=== PATIENT | male | born 1990 | race Caucasian/White ===

== ENCOUNTER 2021-05-01 16:58 | Inpatient (IN) | payer MEDICAID, SELFPAY ==
[~2021-05-01] VITALS: Ht 172.7 cm; Wt 92.1 kg
[~2021-05-01 16:58] MED LIST: ATI.5 PO; [UNRECOGNIZED DRUG - CODE] PO
--- NOTE | 2021-05-01 17:00 | NUR ---
PT W/C ASSITED TO BED #4
[2021-05-01 17:06] VITALS: BP 153/92
--- NOTE | 2021-05-01 17:06 | NUR ---
31 Y/O MALE BIB FATHER FOR ALOC 3DAYS. PER FATHER MAY BE GOING THROUGH ALCOHOL WITHDRAWALS. BILAT PUPILS DILATED 7MM. CONTRACTED. PT IS CONFUSED. GCS 10. WITHDRAWS TO PAIN. FATHER AT BEDSIDE MEDHX: SEIZURE
[2021-05-01] MEDS ORDERED: LORazepam 2 MG/ML VIAL IVP ONE ×2 (17:10→19:25)
[2021-05-01 17:25] LABS: BASOPHILS % (AUTO) 1.2 % (0.0-2.0); EOSINOPHILS # (AUTO) 0.1 K/uL (0-0.4); EOSINOPHILS % (AUTO) 2.2 % (0.0-4.0); HEMATOCRIT 43.7 % (36-52); HEMOGLOBIN 14.7 g/dL (12.0-18.0); LYMPHOCYTES # (AUTO) 1.5 K/uL (2.0-11.5); LYMPHOCYTES % (AUTO) 37.3 % (20.5-51.1); MEAN CORPUSCULAR HEMOGLOBIN 30 pg (27-31); MEAN CORPUSCULAR HGB CONC 34 g/dL (33-37); MEAN CORPUSCULAR VOLUME 88.9 fL (80-94); MONOCYTES # (AUTO) 0.5 K/uL (0.8-1.0); MONOCYTES % (AUTO) 12.5 % (1.7-9.3); NEUTROPHILS # (AUTO) 1.9 K/uL (1.8-7.7); NEUTROPHILS % (AUTO) 46.8 % (42.2-75.2); PLATELET COUNT (AUTO) 212 K/uL (140-450); RED BLOOD CELL COUNT(AUTO) 4.92 MIL/uL (4.20-6.10); RED CELL DISTRIBUTION WIDTH 14.6 % (11.6-13.7)
--- NOTE | 2021-05-01 17:33 | NUR ---
URINE SAMPLE COLLECTED HANDED TO ZOHAIB CAO
[2021-05-01 17:40] LABS: APPEARANCE,URINE CLEAR (CLEAR); BILIRUBIN,URINE NEGATIVE (NEGATIVE); BLOOD, URINE NEGATIVE (NEGATIVE); COLOR,URINE YELLOW (YELLOW); LEUKOCYTE ESTERASE ,URINE NEGATIVE (NEGATIVE); NITRITE, URINE NEGATIVE (NEGATIVE); UGLUCOSE NEGATIVE (NEGATIVE)
[2021-05-01 17:43] LABS: CARBON DIOXIDE 22.9 mmol/L (21-32); CREATININE 0.9 mg/dL (0.6-1.3); POTASSIUM 3.9 mmol/L (3.5-5.1)
[2021-05-01 17:51] LABS: ALBUMIN 3.6 g/dL (3.4-5.0); TOTAL BILIRUBIN 0.6 mg/dL (0.0-1.0)
[2021-05-01 17:51] LABS: BARBITURATE, URINE NEGATIVE ng/ml (NEG <=200); BENZODIAZEPINE, URINE NEGATIVE ng/mL (NEG <=200); CANNABINOID, URINE NEGATIVE ng/mL (NEG <=50); COCAINE, URINE NEGATIVE ng/mL (NEG <=300); OPIATE, URINE NEGATIVE ng/mL (NEG <=2000); PHENCYCLIDINE SCREEN,URINE NEGATIVE ng/mL (NEG <=25)
--- NOTE | 2021-05-01 18:15 | NUR ---
Dr. Fountain is reevaluating the patient at bedside.
[2021-05-01] MEDS ORDERED: NACL 0.9% 1,000 ML IV ONE (18:20)
[2021-05-01] MEDS ORDERED: KETOROLAC 15 MG/ML VIAL IVP ONE (18:25)
--- NOTE | 2021-05-01 18:48 | NUR ---
Pt taken to CT Scan Via ivory
--- NOTE | 2021-05-01 19:11 | NUR ---
REPORT RECEIVED FROM CURTIS CRUMP FOR CONTINUITY OF CARE
--- NOTE | 2021-05-01 19:11 | NUR ---
Edyta lópez in [facility] - 05/01/21 at 1911 by [email or web address] REPORT RECEIVED FROM CURTIS CRUMP FOR CONTINUITY OF CARE
--- NOTE | 2021-05-01 19:11 | NUR ---
Pt report given to THOM RN. Transfer of care at this time.
--- NOTE | 2021-05-01 19:33 | NUR ---
Edyta lópez in ED - 05/01/21 at 1934 by MEDHAKEEM Wasted ATivan 1mg/ml per MD order of partial dose. Patient received 1mg/ml.
--- NOTE | 2021-05-01 19:34 | NUR ---
Wasted ATivan 1mg/ml per MD order of partial dose with financial management Kym. Patient received 1mg/ml.
--- NOTE | 2021-05-01 19:43 | NUR ---
collected blood and urine, gave to navid Boone
[2021-05-01] MEDS ORDERED: CLINDAMYCIN 600 MG in DEXTROSE 5% 50 ML IV ONE (19:55)
[2021-05-01] MEDS ORDERED: CLINDAMYCIN 600 MG/4 ML VIAL ONE (20:12)
--- NOTE | 2021-05-01 20:27 | NUR ---
Called father Luis for updates on son. for future updates can call #[phone]
[2021-05-01] MEDS ORDERED: LORazepam 2 MG/ML VIAL IVP PRN (21:05)
[2021-05-01] MEDS: MULTIVITAMIN-12 10 ML, THIAMINE 100 MG, FOLIC ACID 1 MG, MAGNESIUM SULFATE 50% 2,000 MG... IV SCH ×5 (21:05)
--- NOTE | 2021-05-01 21:19 | NUR ---
Called for medication reconcilation-- cannot recall patient medications
[2021-05-01] MEDS ORDERED: ATI.5 PO (21:25)
[2021-05-01] MEDS ORDERED: HYDR-5080 PO (21:26)
--- NOTE | 2021-05-01 21:40 | NUR ---
Patient will be admitted to care of KAPIL PATEL. Admited to TELEMETRY. Will go to room 119A. Belongings list completed. Report to MJ. Patient stable.
--- NOTE | 2021-05-01 22:00 | NUR ---
ADMITTED THE PATIENT FROM ER VIA GURNEY. PATIENT A/A/OX3, ABLE TO RESPOND TO QUESTIONS. PATIENT NOT ON ANY DISTRESS. NO COMPLAIN AT THIS TIME. VSS, AFEBRILE, SATING 98% ON 2L/NC. ST ON PURCHASE ANALYST, HR-116. ORIENTED THE PATIENT TO THE ROOM SETTING AND USE OF CALL LIGHT SYSTEM. FALL PRECAUTION IMPLEMENTED. INSTRUCTED THE PT NOT TO GET OOB WITHOUT ASSISTANCE. PT VERBALIZED UNDERSTANDING WITH THE POC. CALL LIGHT WITHIN REACH. WILL CONTINUE POC AND MONITORING.
[2021-05-01 23:00] VITALS: BP 135/67
[2021-05-02] VITALS: BP 137/81
--- NOTE | 2021-05-02 00:50 | NUR ---
PATIENT COMPLAINING OF PAIN ON HIS ABDOMEN AND RECTAL AREA, PT STATED THAT " I HAVE A FISTULA ON MY RECTUM". NO PRN MEDS ON BOARD. PAGED DR DICK AND AWAITING FOR MD TO RESPOND.
[2021-05-02] MEDS ORDERED: MORPHINE SULFATE 2 MG/ML SYR IVP PRN ×2 (01:15→09:10)
--- NOTE | 2021-05-02 02:20 | NUR ---
PATIENT ASLEEP AT THIS TIME. VISIBLE CHEST RISE AND FALL NOTED. PT NOT IN ANY DISTRESS AND NO COMPLAIN AT THIS TIME. CALL LIGHT WITHIN REACH.
[2021-05-02] MEDS: KETOROLAC 15 MG/ML VIAL IVP PRN ×2 (02:28→09:13)
[2021-05-02 04:00] VITALS: BP 148/85
[2021-05-02] MEDS: chlordiazePOXIDE 25 MG CAP PO SCH ×3 (04:21→20:42)
--- NOTE | 2021-05-02 04:22 | NUR ---
Pt still complaining of pain on his abdomen. Prn Morphine given as ordered. Will continue to observe.
--- NOTE | 2021-05-02 06:38 | NUR ---
PATIENT STABLE. NO ACUTE EVENTS THROUGHOUT THE NIGHT. PT NOT IN ANY DISTRESS. NO COMPLAIN AT THIS TIME. ALL NEEDS ATTENDED.CALL LIGHT WITHIN REACH. WILL ENDORSE THE PT TO THE ONCOMING RN FOR CONTINUITY OF CARE.
--- NOTE | 2021-05-02 07:37 | NUR ---
ENDORSED PATIENT TO DAY RN FOR CONTINUITY OF CARE. SIGNING OFF.
[2021-05-02 08:00] VITALS: BP 160/98
[2021-05-02] MEDS ORDERED: ONDANSETRON 4 MG/2 ML VIAL IM/IVP PRN (09:10)
[2021-05-02] MEDS ORDERED: ACETAMINOPHEN 325 MG TAB PO PRN (09:10)
[2021-05-02] MEDS ORDERED: POTASSIUM CHLORIDE 10 MEQ TABER PO PRN (09:10)
[2021-05-02] MEDS ORDERED: DOCUSATE SODIUM 100 MG GELCAP PO PRN (09:10)
[2021-05-02] MEDS ORDERED: MAG SULF 2000 MG/WATER PREMIX 50 ML IV PRN (09:10)
[2021-05-02] MEDS ORDERED: ZOLPIDEM 5 MG TAB PO PRN (09:10)
[2021-05-02] MEDS ORDERED: HYDROcodone/APAP 5/325 MG 1 TAB TAB PO PRN (09:10)
--- NOTE | 2021-05-02 09:13 | NUR ---
ADMINISTERED PRESCRIBED MEDS FOR PRN 8/10 PAIN ORDERED BY MD. PATIENT TOLERATED WELL. MEDICATION EDUCATION PROVIDED. PATIENT VERBALIZED UNDERSTANDING. SAFETY MEASURES IN PLACE. WILL CONTINUE TO MONITOR.
[2021-05-02] MEDS: NACL 0.9% 1,000 ML IV SCH ×2 (09:23→17:59)
--- NOTE | 2021-05-02 10:41 | NUR ---
DC PLANNIN YRS OLD MALE PATIENT WAS ADMITTED FROM HOME WITH A DX OF ALCOHOL WITHDRAWAL.PATIENT HAS A HX OF CHIRON'S DISEASE AND ALCOHOLISM , HIATAL HERNIA, ANAL FISTULA AND HEART MURMUR. CT ABD/PELVIS SHOWED POSSIBLE MILD DISTAL ESOPHAGITIS AND HEPATIC STEATOSIS. RAPID COVID TEST NORMAL . RAPID COVID TEST NEGATIVE. ADMINISTERED IVF, BANANA BAG. CONSULTED WITH GI ,SURGEON AND INSTALLER METAL FLOORING FOR ALCOHOLISM. DC PLAN TO GO HOME WHEN STABLE. CM TO FOLLOW. Addendum: 05/05/21 at 1051 by Kallie Fry RN DC PLANNING: PATIENT WAS SEEN BY PSYCHIATRIST DR SARGENT COUNSELED ON ALCOHOL ABUSE AND RECOMMENDED OUTPATIENT REHAB AND MENTAL HEALTH RESOURSES PROVIDED. SURGEON DR BAGLEY RECOMMENDING OUT PATIENT FOLLOW UP WITH GI CLINICALLY STABLE. PATIENT IS STABLE FOR DISCHARGE. CM TO FOLLOW
[2021-05-02] MEDS: MORPHINE SULFATE 2 MG/ML SYR IVP PRN ×2 (11:32→18:01)
--- NOTE | 2021-05-02 11:36 | NUR ---
ADMINISTERED PRESCRIBED MEDS PER MD ORDER FOR PRN 8/10 PAIN. MEDICATION EDUCATION PROVIDED. PATIENT VERBALIZED UNDERSTANDING. SAFETY MEASURES IN PLACE. WILL CONTINUE TO MONITOR.
[2021-05-02 12:00] VITALS: BP 152/89
--- NOTE | 2021-05-02 13:31 | NUR ---
ADMINISTERED PRESCRIBED MEDS PER MD ORDER. PATIENT TOLERATED WELL. MEDICATION EDUCATION PROVIDED. PATIENT VERBALIZED UNDERSTANDING. PATIENT REQUESTED ASSISTANCE TO BATHROOM. STUDENT NURSE PROVIDED STAND-BY ASSISTANCE TO BATHROOM. PATIENT GAIT STEADY. SAFETY MEASURES IN PLACE. WILL CONTINUE TO MONITOR.
[2021-05-02 13:38] LABS: PROTHROMBIN TIME 10.1 secs (10.8-13.4)
[2021-05-02 14:04] LABS: CHOL/HDL RATIO 1.8 (1-4.5); MAGNESIUM 1.8 mg/dL (1.8-2.4); PHOSPHORUS 2.8 mg/dL (2.5-4.9); THYROID STIMULATING HORMONE 3.49 uIU/mL (0.34-3.74)
[2021-05-02 14:15] LABS: ANION GAP 13.9 (8-16); CARBON DIOXIDE 25.6 mmol/L (21-32); CREATININE 0.8 mg/dL (0.6-1.3); POTASSIUM 3.5 mmol/L (3.5-5.1)
[2021-05-02 16:00] VITALS: BP 152/89
[2021-05-02 16:46] LABS: BASOPHILS # (AUTO) 0.1 K/uL (0.00-0.22); BASOPHILS % (AUTO) 1.4 % (0.0-2.0); EOSINOPHILS % (AUTO) 0.9 % (0.0-4.0); HEMATOCRIT 41.5 % (36-52); HEMOGLOBIN 13.6 g/dL (12.0-18.0); LYMPHOCYTES # (AUTO) 0.5 K/uL (2.0-11.5); LYMPHOCYTES % (AUTO) 11.8 % (20.5-51.1); MEAN CORPUSCULAR HEMOGLOBIN 30 pg (27-31); MEAN CORPUSCULAR HGB CONC 33 g/dL (33-37); MEAN CORPUSCULAR VOLUME 90.2 fL (80-94); MONOCYTES # (AUTO) 0.4 K/uL (0.8-1.0); MONOCYTES % (AUTO) 9.1 % (1.7-9.3); NEUTROPHILS # (AUTO) 3.4 K/uL (1.8-7.7); NEUTROPHILS % (AUTO) 76.8 % (42.2-75.2); PLATELET COUNT (AUTO) 169 K/uL (140-450); RED CELL DISTRIBUTION WIDTH 15.3 % (11.6-13.7); WHITE BLOOD COUNT (AUTO) 4.4 K/uL (4.8-10.8)
--- NOTE | 2021-05-02 19:23 | NUR ---
BEDSIDE ENDORSEMENT PROVIDED TO NIGHTSHIFT NURSE FOR CONTINUITY OF CARE.
[2021-05-02 20:00] VITALS: BP 135/87
--- NOTE | 2021-05-02 20:00 | NUR ---
RECEIVED BEDSIDE REPORT EARLIER REGARDING THE PATIENT FOR CONTINUITY OF CARE. RECEIVED PATIENT ASLEEP BUT EASY TO AROUSED. PT A/A/OX3. PT IS NOT IN ANY DISTRESS. NO COMPLAIN AT THIS TIME. DENIES ANY CHEST PAIN, SOB, DIZZINESS OR ANY ABDOMINAL DISCOMFORT. IVF INFUSING ORDERED. VSS, AFEBRILE,SATING 99% ON RA. SR ON CURBING STONECUTTER, HR-63. FALL PRECAUTION IMPLEMENTED. INSTRUCTED THE PT TO CALL FOR ASSISTANCE AT ALL TIME WHEN GETTING OUT OF BED.DISCUSSED POC WITH THE PT AND VERBALIZED UNDERSTANDING. CALL LIGHT WITHIN REACH. WILL CONTINUE POC AND MONITORING.
[2021-05-02] MEDS: MULTIVITAMIN-12 10 ML, THIAMINE 100 MG, FOLIC ACID 1 MG, MAGNESIUM SULFATE 50% 2,000 MG... IV SCH ×5 (20:52)
--- NOTE | 2021-05-02 22:00 | NUR ---
ADMINISTERED THE SCHEDULED MEDICATIONS ORDERED. PATIENT TOLERATED IT WELL. NO ADVERSE DRUG REACTION NOTED. NO COMPLAIN FROM THE PATIENT.
[2021-05-03] VITALS: BP 145/97
[2021-05-03] MEDS ORDERED: MULTIVITAMIN-12 10 ML, THIAMINE 100 MG, FOLIC ACID 1 MG, MAGNESIUM SULFATE 50% 2,000 MG... IV ONE ×5 (00:30)
[2021-05-03] MEDS: NACL 0.9% 1,000 ML IV SCH ×3 (01:50→17:20)
--- NOTE | 2021-05-03 02:18 | NUR ---
VITAL SIGNS STABLE, AFEBRILE, SATING 98% ON RA. NO COMPLAIN OF PAIN AT THIS TIME. PT NOT IN ANY DISTRESS. SBA WITH ON MERCHANDISE EXECUTIVE, HR-59. Addendum: 05/03/21 at 0539 by Shefali Yanes RN RN MIDNIGHT VITAL SIGNS
--- NOTE | 2021-05-03 02:30 | NUR ---
PT ASLEEP AT THIS TIME. VISIBLE CHEST RISE AND FALL NOTED. NOT IN ANY DISTRESS. SAFETY MEASURES IN PLACE.
[2021-05-03 04:00] VITALS: BP 152/97
[2021-05-03] MEDS: chlordiazePOXIDE 25 MG CAP PO SCH ×3 (04:16→20:54)
--- NOTE | 2021-05-03 05:38 | NUR ---
VITAL SIGNS STABLE, AFEBRILE, SATING 100% ON RA. NO COMPLAIN OF PAIN AT THIS TIME. PT NOT IN ANY DISTRESS. SR ON SPRAY RIG OPERATOR, HR-73. CALL LIGHT WITHIN REACH.
[2021-05-03 05:57] LABS: BASOPHILS % (AUTO) 0.8 % (0.0-2.0); EOSINOPHILS # (AUTO) 0.1 K/uL (0-0.4); EOSINOPHILS % (AUTO) 3.9 % (0.0-4.0); HEMATOCRIT 37.8 % (36-52); HEMOGLOBIN 12.8 g/dL (12.0-18.0); LYMPHOCYTES # (AUTO) 0.8 K/uL (2.0-11.5); LYMPHOCYTES % (AUTO) 26.8 % (20.5-51.1); MEAN CORPUSCULAR HEMOGLOBIN 30 pg (27-31); MEAN CORPUSCULAR HGB CONC 34 g/dL (33-37); MEAN CORPUSCULAR VOLUME 90.1 fL (80-94); MONOCYTES # (AUTO) 0.4 K/uL (0.8-1.0); NEUTROPHILS # (AUTO) 1.6 K/uL (1.8-7.7); NEUTROPHILS % (AUTO) 54.5 % (42.2-75.2); PLATELET COUNT (AUTO) 159 K/uL (140-450); RED CELL DISTRIBUTION WIDTH 14.7 % (11.6-13.7)
[2021-05-03 06:01] LABS: ANION GAP 11.2 (8-16); CARBON DIOXIDE 26.6 mmol/L (21-32); CREATININE 0.7 mg/dL (0.6-1.3); POTASSIUM 3.8 mmol/L (3.5-5.1)
[2021-05-03 06:16] LABS: MAGNESIUM 2.1 mg/dL (1.8-2.4); PHOSPHORUS 2.6 mg/dL (2.5-4.9)
--- NOTE | 2021-05-03 06:30 | NUR ---
PATIENT STABLE. NO ACUTE EVENTS THROUGHOUT THE NIGHT. NO SEIZURE ACTIVITY NOTED. PT NOT IN ANY DISTRESS. NO COMPLAIN AT THIS TIME. ALL NEEDS ATTENDED.CALL LIGHT WITHIN REACH. WILL ENDORSE THE PT TO THE ONCOMING RN FOR CONTINUITY OF CARE.
--- NOTE | 2021-05-03 07:35 | NUR ---
PT RECEIVED FROM DEVELOPMENT ADMINISTRATOR NURSE. EYES OPEN. BREATHING SYMMETRICAL. PT ON ROOM AIR. NO S/S OF DISTRESS. NO COMPLAINS OF PAIN AT THIS TIME . PT IS ABLE TO MAKE NEEDS KNOWN. CALL LIGHT WITHIN REACH. ALL SAFETY MEASURES ARE IN PLACE
[2021-05-03 08:00] VITALS: BP 152/88
[2021-05-03] MEDS: LORazepam 2 MG/ML VIAL IM/IVP PRN ×2 (09:31→15:01)
--- NOTE | 2021-05-03 09:42 | NUR ---
MEDICATIONS GIVEN PER MD ORDER. PATIENT EDUCATED. PATIENT VERBALIZES UNDERSTANDING. PRN MEDICATION GIVEN FOR ANXIETY. PATIENT EDUCATED. ALL SAFETY MEASURES ARE IN PLACE. CALL LIGHT WITHIN REACH. PT IS ABLE TO MAKE NEEDS KNOWN.
--- NOTE | 2021-05-03 10:33 | NUR ---
CRITICAL VALUE RECEIVED. AWARE. ORDERS CARRIED THROUGH.
--- NOTE | 2021-05-03 11:00 | NUR ---
PT TRANSFERRED TO NEW ROOM. PT TOLERATED WELL. NO SLS OF DISTRESS.PT ORIENTED TO NEW ROOM. CHLORHEXIDINE WIPES GIVEN PER MD ORDER.ALL SAFETY MEASURES PUT IN PLACE. CALL LIGHT WITHIN REACH.
[2021-05-03] MEDS: CHLORHEXADINE GLUC 2% CLOTH TP SCH (11:14)
[2021-05-03] MEDS: MORPHINE SULFATE 2 MG/ML SYR IVP PRN ×2 (11:56→19:44)
[2021-05-03 12:00] VITALS: BP 159/71
--- NOTE | 2021-05-03 12:18 | NUR ---
PT COMPLAINS OF 9/10 PAIN IN THE ABDOMEN. MEDITATION AND DISTRACTION WERE UNSUCCESSFUL. PRN MEDICATION GIVEN PER MD ORDER. PATIENT EDUCATION. PATIENT VERBALIZES UNDERSTANDING.
[2021-05-03] MEDS: MUPIROCIN CA NASAL 2% 1GM TUBE NS SCH (12:31)
[2021-05-03] MEDS: KETOROLAC 15 MG/ML VIAL IVP PRN (12:33)
[2021-05-03 12:54] LABS: T4 (THYROXINE) 4.4 ug/dL (4.5 - 12.0)
--- NOTE | 2021-05-03 14:53 | NUR ---
BED BATH GIVEN. GOWN CHANGED. PT EDUCATED TO REPOSITION SELF Q2H. [place]AMI AREA CLEANSED. PATIENT TOLERATED WELL. NO S/S OF DISTRESS. ALL SAFETY MEASURES IN PLACE.
[2021-05-03 16:00] VITALS: BP 119/74
--- NOTE | 2021-05-03 16:00 | NUR ---
PATIENT RESTING IN BED. NO S/S OF DISTRESS, ALL SAFETY MEASURES IN PLACE.
--- NOTE | 2021-05-03 18:20 | NUR ---
DINNER PROVIDED. PATIENT ASLEEP AND EASY TO AROUSE. PATIENT EDUCATED ON NUTRITION. CALL LIGHT WITHIN REACH.
--- NOTE | 2021-05-03 19:01 | NUR ---
PT LETHARGIC BUT ABLE TO FOLLOW COMMANDS. BP 120/88, HR 74, TEMP 97.4, O2 96%. BG 107. PROVIDED ICE PACK FOR PAIN RELIEF. WILL ENDORSE TO MARKETING FINANCIAL ANALYST RN FOR CONTINUATIVE CARE.
--- NOTE | 2021-05-03 19:15 | NUR ---
RECEIVED REPORT FROM TOD ACEVEDO AND FATOUMATA RN AT BEDSIDE FOR CONTINUITY OF CARE. PT IS IN STABLE CONDITION. HE IS BED WITH HOB ELEVATED 35%. SEZUIRE PRECAUTIONS IN PLACE. HE IS LETHARGIC BUT RESPONDS TO NAME AND LIGHT TOUCH. HE HAS 2 IV SITES RAC 20G RUNNING NORMAL SALINE AT 120MLS/HR. PT ALSO HAS A LFA 20G ASYMPTOMATIC AND SALINE LOCKED. UNIVERSAL FALLS PRECAUTIONS IN PLACE.
--- NOTE | 2021-05-03 19:45 | NUR ---
PT IS AWAKE BUT LETHARGIC HE IS AOX2 HE IS AWARE OF HIMSELF AND HE UNDERSTANDS THAT IT IS SATURDAY AND THAT HE IS IN A HOSPITAL SOMEWHERE. PT REORIENTED TO TIME AND PLACE AND DATE, HE VERBALIZED UNDERSTANDING. PT C/O OF 8/10 PAIN IN STOMACH, HE WAS GIVEN IVP/PRN MORPHINE 2MG. WILL MONITOR FOR PAIN RELIEF. V/S FOLLOWS:T 97.1 P 70 R R 16 B/P 117/64 02 96% ON ROOM AIR. ALL ORDERED PRECAUTIONS IN PLACE.
[2021-05-03 20:00] VITALS: BP 117/64
[2021-05-03] MEDS ORDERED: MULTIVITAMIN-12 10 ML, THIAMINE 100 MG, FOLIC ACID 1 MG, MAGNESIUM SULFATE 50% 2,000 MG... IV SCH ×5 (20:00)
--- NOTE | 2021-05-03 21:00 | NUR ---
PT LYING IN BED HE HAS C/O OF IV SITE ON RAC LEAKING. FLUIDS WERE SWITCHED TO LFA IV SITE. PT WAS GIVEN ORDERED LIBRIUM FOR ETOH WITHDRAWAL AND HEPARIN SQ FOR DVT PREVENTION. EDUCATION PROVIDED AT BEDSIDE REGARDING ORDERED MEDICATION. PT SAID OK. PT SAID HIS STOMACH WAS FEELING BETTER AND ALL REQUESTED NEEDS ATTENDED BY STAFF.
--- NOTE | 2021-05-03 22:30 | NUR ---
ROUNDS DONE, PT IN BED ASLEEP NO S/S OF PAIN OR DISTRESS NOTED. ALL ORDERED PRECAUTIONS IN PLACE.
[2021-05-04] VITALS: BP 133/72
--- NOTE | 2021-05-04 | NUR ---
PT IN BED ASLEEP NO S/S OF PAIN OR DISTRESS NOTED. NORMAL SALINE RUNNING AT 120MLS/HR ORDERED. ALL UNIVERSAL FALLS PRECAUTIONS IN PLACE.
--- NOTE | 2021-05-04 00:30 | NUR ---
PT UP WAS STANDBY ASSIST TO TOILET FISTULA ON RIGHT BUTTOCK HAS NO DRAINAGE NOTED. PT ABLE TO AMBULATE TO TOILET WITH A STEADY GAIT. V/S FOLLOWS: T 97.8 P 72 R 17 B/P 133/72 02 97% ON ROOM AIR.
[2021-05-04] MEDS: LORazepam 2 MG/ML VIAL IM/IVP PRN (01:41)
--- NOTE | 2021-05-04 01:45 | NUR ---
PT ATE SOME FOOD, AT BEDSIDE, HE COMPLAINED OF SHAKINESS. VISIBLE SHAKINESS SEEN, PT GIVEN 1MF IVP ATIVAN. ALL OTHER REQUESTS ATTENDED BY STAFF. ALL ORDERED PRECAUTIONS IN PLACE.
[2021-05-04] MEDS: NACL 0.9% 1,000 ML IV SCH ×3 (02:50→20:22)
[2021-05-04 04:00] VITALS: BP 102/44
--- NOTE | 2021-05-04 05:00 | NUR ---
PT AWAKE AND ALERT HE IS SITTING UP IN BED IV SITE ON RIGHT WRIST RUNNING NORMAL SALINE AT 120MLS/HR. V/S FOLLOWS: T 97.7 P 76 R 20 B/P 102/44 02 98% ON ROOM AIR. PT GIVEN ORDERED LIBRIUM NO SEIZURES NOTED THIS SHIFT PT HAS NO SHAKINESS. ALL UNIVERSAL FALLS IN PLACE.
[2021-05-04] MEDS: chlordiazePOXIDE 25 MG CAP PO SCH ×3 (06:31→20:30)
[2021-05-04 06:36] LABS: BASOPHILS # (AUTO) 0.1 K/uL (0.00-0.22); BASOPHILS % (AUTO) 2.6 % (0.0-2.0); EOSINOPHILS # (AUTO) 0.1 K/uL (0-0.4); EOSINOPHILS % (AUTO) 4.5 % (0.0-4.0); HEMATOCRIT 40.3 % (36-52); HEMOGLOBIN 13.4 g/dL (12.0-18.0); LYMPHOCYTES # (AUTO) 0.5 K/uL (2.0-11.5); LYMPHOCYTES % (AUTO) 14.3 % (20.5-51.1); MEAN CORPUSCULAR HEMOGLOBIN 30 pg (27-31); MEAN CORPUSCULAR HGB CONC 33 g/dL (33-37); MEAN CORPUSCULAR VOLUME 89.9 fL (80-94); MONOCYTES # (AUTO) 0.2 K/uL (0.8-1.0); MONOCYTES % (AUTO) 7.5 % (1.7-9.3); NEUTROPHILS # (AUTO) 2.3 K/uL (1.8-7.7); NEUTROPHILS % (AUTO) 71.1 % (42.2-75.2); PLATELET COUNT (AUTO) 157 K/uL (140-450); RED BLOOD CELL COUNT(AUTO) 4.48 MIL/uL (4.20-6.10); RED CELL DISTRIBUTION WIDTH 14.9 % (11.6-13.7); WHITE BLOOD COUNT (AUTO) 3.2 K/uL (4.8-10.8)
[2021-05-04 06:40] LABS: PHOSPHORUS 2.1 mg/dL (2.5-4.9)
[2021-05-04 06:41] LABS: ANION GAP 13.5 (8-16); CARBON DIOXIDE 26.4 mmol/L (21-32); CREATININE 0.9 mg/dL (0.6-1.3); POTASSIUM 3.9 mmol/L (3.5-5.1)
--- NOTE | 2021-05-04 07:30 | NUR ---
RECEIVED REPORT FROM PULLMAN CONDUCTOR NURSE FOR CONTINUITY OF CARE. PT IS AOX4 AND IN STABLE CONDITION. RESPIRATIONS EVEN AND UNLABORED. NO RESPIRATORY DISTRESS NOTED. SKIN IS WARM AND DRY. IV SITE ON RAC 20G AND LFA 20G. INTACT AND PATENT. IVF INFUSING WELL. PLAN OF CARE DISCUSSED. SAFETY PRECAUTIONS IN PLACE. CALL LIGHT WITHIN REACH. WILL CONTINUE TO MONITOR.
[2021-05-04] MEDS ORDERED: KETOROLAC 15 MG/ML VIAL IVP PRN (07:32)
[2021-05-04 08:00] VITALS: BP 127/77
[2021-05-04] MEDS: MORPHINE SULFATE 2 MG/ML SYR IVP PRN (09:55)
--- NOTE | 2021-05-04 09:55 | NUR ---
PATIENT COMPLAINED OF 8/10 ABDOMINAL PAIN. ADMINISTERED MORPHINE IVP PER MD ORDERED.
[2021-05-04] MEDS: CHLORHEXADINE GLUC 2% CLOTH TP SCH (11:00)
[2021-05-04 12:00] VITALS: BP 150/93
[2021-05-04] MEDS: MUPIROCIN CA NASAL 2% 1GM TUBE NS SCH (12:44)
--- NOTE | 2021-05-04 12:50 | NUR ---
ALL SCHEDULED MEDS GIVEN. PT IS STABLE. NO DISTRESS NOTED. WILL CONTINUE TO MONITOR.
[2021-05-04] MEDS: MESALAMINE 400 MG CAPSULE.DR PO SCH ×2 (13:46→17:22)
[2021-05-04] MEDS: metroNIDAZOLE 500 MG TAB PO SCH ×2 (13:47→17:22)
--- NOTE | 2021-05-04 13:50 | NUR ---
ALL SCHEDULED MEDS GIVEN. PT IS STABLE. NO DISTRESS NOTED. WILL CONTINUE TO MONITOR.
--- NOTE | 2021-05-04 15:15 | NUR ---
CHECKED ON PATIENT. PATIENT IS ASLEEP. NOTED CHEST RISE AND FALL. NO DISTRESS NOTED. WILL CONTINUE TO MONITOR.
[2021-05-04 16:00] VITALS: BP 128/91
--- NOTE | 2021-05-04 17:30 | NUR ---
ALL SCHEDULED MEDS GIVEN. PT IS STABLE. NO DISTRESS NOTED. WILL CONTINUE TO MONITOR.
--- NOTE | 2021-05-04 19:25 | NUR ---
ENDORSED TO RN PEDIATRIC NURSE FOR CONTINUITY OF CARE. PT IS STABLE.
--- NOTE | 2021-05-04 19:30 | NUR ---
RECEIVED REPORT FROM RN DAYSHIFT NURSE AT BEDSIDE FOR CONTINUITY OF CARE, PT IN STABLE CONDITION.
[2021-05-04 20:00] VITALS: BP 108/77
--- NOTE | 2021-05-04 20:00 | NUR ---
PT SITTING UP IN BED AOX3,ON ROOM AIR, HE HAS L WRIST 20 GUAGE IV RUNNING NORMAL SALINE AT 120. V/S FOLLOWS: T 97.0 P 73 R 20 B/P 108/59 02 97%. HE DENIES ANY PAIN . Addendum: 05/04/21 at 0809 by Mely Middleton RN 05/03/21 NOT 05/04/21
--- NOTE | 2021-05-04 21:00 | NUR ---
PT GIVEN ORDERED LIBRIUM AND ORDERED HEPARIN SQ EDUCATION REGARDING PURPOSE OF MEDICATION. PT VERBALIZED UNDERSTANDING. FLUIDS OF NORMAL SALINE REPLACED. ALL UNIVERSAL FALLS PRECAUTIONS IN PLACE.
--- NOTE | 2021-05-05 00:08 | NUR ---
PT IN BED ASLEEP NO S/S OF PAIN OR DISTRESS NOTED NORMAL SALINE CONTINUES AT 120MLS/HR. ALL UNIVERSAL FALLS PRECAUTIONS IN PLACE.
[2021-05-05] MEDS: MORPHINE SULFATE 2 MG/ML SYR IVP PRN (02:12)
--- NOTE | 2021-05-05 02:15 | NUR ---
PT C/O OF SEVERE PAIN IN ABDOMEN, HE WAS MOANING AND RESTLESS IN BED PT GIVEN PRN/IVP MORPHINE WILL MONITOR FOR EFFECT.
[2021-05-05] MEDS: chlordiazePOXIDE 25 MG CAP PO SCH ×2 (05:24→13:37)
--- NOTE | 2021-05-05 05:30 | NUR ---
PT RECEIVED ORDERED AND SCHEDULED LIBRIUM MEDICATION PURPOSE AND EDUCATION PROVIDED AT BEDSIDE, DISCHARGE TOPICS DISCUSSED , PT VERBALIZED THE DESIRE TO SPENT MONEY ON BETTER THINGS THAN ETOH AND DESIRES TO FIND SOMETHING THAT WILL HELP HIM THROUGH HIS ANXIETY AND TO SPEND HIS TIME IN A MORE MEANINGFUL WAY WITH LOVED ONES. ALL REQUESTED NEEDS ATTNEDE AND ALL UNIVERSAL FALLS PRECAUTIONS IN PLACE.
[2021-05-05] MEDS: NACL 0.9% 1,000 ML IV SCH ×2 (05:40→13:00)
[2021-05-05 05:53] LABS: ANION GAP 9.5 (8-16); CARBON DIOXIDE 27.5 mmol/L (21-32); CREATININE 0.8 mg/dL (0.6-1.3)
[2021-05-05 06:02] LABS: MAGNESIUM 1.9 mg/dL (1.8-2.4)
[2021-05-05 06:16] LABS: BASOPHILS % (AUTO) 0.7 % (0.0-2.0); EOSINOPHILS # (AUTO) 0.1 K/uL (0-0.4); EOSINOPHILS % (AUTO) 3.3 % (0.0-4.0); HEMOGLOBIN 13.1 g/dL (12.0-18.0); LYMPHOCYTES # (AUTO) 0.9 K/uL (2.0-11.5); LYMPHOCYTES % (AUTO) 22.8 % (20.5-51.1); MEAN CORPUSCULAR HEMOGLOBIN 30 pg (27-31); MEAN CORPUSCULAR HGB CONC 33 g/dL (33-37); MEAN CORPUSCULAR VOLUME 90.7 fL (80-94); MONOCYTES # (AUTO) 0.6 K/uL (0.8-1.0); MONOCYTES % (AUTO) 13.7 % (1.7-9.3); NEUTROPHILS # (AUTO) 2.4 K/uL (1.8-7.7); NEUTROPHILS % (AUTO) 59.5 % (42.2-75.2); PLATELET COUNT (AUTO) 161 K/uL (140-450); RED BLOOD CELL COUNT(AUTO) 4.41 MIL/uL (4.20-6.10); WHITE BLOOD COUNT (AUTO) 4.1 K/uL (4.8-10.8)
--- NOTE | 2021-05-05 07:30 | NUR ---
RECEIVED REPORT FROM BORING MACHINE OPERATOR NURSE FOR CONTINUITY OF CARE. PT IS AOX4 AND IN STABLE CONDITION. RESPIRATIONS EVEN AND UNLABORED. NO RESPIRATORY DISTRESS NOTED. SKIN IS WARM AND DRY. IV SITE ON RH 24G. INTACT AND PATENT. IVF INFUSING WELL. PLAN OF CARE DISCUSSED. SAFETY PRECAUTIONS IN PLACE. CALL LIGHT WITHIN REACH. WILL CONTINUE TO MONITOR.
[2021-05-05 08:00] VITALS: BP 140/82
[2021-05-05] MEDS ORDERED: SERTRALINE 50 MG TAB PO SCH (09:00)
[2021-05-05] MEDS: MESALAMINE 400 MG CAPSULE.DR PO SCH ×2 (09:07→13:37)
[2021-05-05] MEDS: metroNIDAZOLE 500 MG TAB PO SCH ×2 (09:08→13:37)
--- NOTE | 2021-05-05 09:15 | NUR ---
ALL SCHEDULED MEDICATIONS GIVEN. PT IS STABLE. NO DISTRESS NOTED. WILL CONTINUE TO MONITOR.
[2021-05-05] MEDS ORDERED: LIB25 PO (10:02)
[2021-05-05] MEDS ORDERED: MESA400C PO (10:08)
[2021-05-05] MEDS ORDERED: SERT-515 PO (10:08)
[2021-05-05] MEDS ORDERED: METR500T1 PO (10:09)
[2021-05-05] MEDS: CHLORHEXADINE GLUC 2% CLOTH TP SCH (11:13)
--- NOTE | 2021-05-05 11:59 | NUR ---
PATIENT COMPLAINED OF MILD HEADACHE 01/25. ADMINISTERED TYLENOL PO PRN PER MD ORDERED.
[2021-05-05 12:10] VITALS: BP 140/82
[2021-05-05] MEDS: MUPIROCIN CA NASAL 2% 1GM TUBE NS SCH (13:37)
--- NOTE | 2021-05-05 13:45 | NUR ---
ALL SCHEDULED MEDICATIONS GIVEN. PT IS STABLE. NO DISTRESS NOTED. WILL CONTINUE TO MONITOR.
--- NOTE | 2021-05-05 14:30 | NUR ---
ENDORSED TO PATIENT DISCHARGE INSTRUCTIONS. PATIENT VERBALIZED UNDERSTANDING AND SIGNED DISCHARGE FORMS.
--- NOTE | 2021-05-05 15:05 | NUR ---
PATIENT DISCHARGED OF THE UNIT. IV CATH AND ID BAND REMOVED. PICKED UP BY FAMILY AT THE FRONT LOBBY. PATIENT WAS STABLE PRIOR TO DISCHARGE
== END 2021-05-05 15:00 | disposition home or self-care (01) | DRG 816 ==
LOC: MED 16:58 → MTU 21:09
DX: T51.0X1A Toxic effect of ethanol, accidental (unintentional), initial encounter (principal); G92 Toxic encephalopathy; K50.90 Crohn's disease, unspecified, without complications; E83.51 Hypocalcemia; F10.129 Alcohol abuse with intoxication, unspecified; E66.9 Obesity, unspecified; K60.3 Anal fistula; Y90.8 Blood alcohol level of 240 mg/100 ml or more; I10 Essential (primary) hypertension; L03.90 Cellulitis, unspecified; K76.0 Fatty (change of) liver, not elsewhere classified; K20.90 Esophagitis, unspecified without bleeding; Z20.822 Contact with and (suspected) exposure to COVID-19; F41.9 Anxiety disorder, unspecified; Z79.899 Other long term (current) drug therapy; Y92.89 Other specified places as the place of occurrence of the external cause; Z68.30 Body mass index [BMI] 30.0-30.9, adult
CPT/HCPCS: 36415; 80048; 80053; 80305; 81003; 82140; 82150; 82550; 83036; 83605; 83690; 83735; 83880; 84100; 84134; 84436; 84443; 84484; 85025; 85610; 85730; 86140; 87040; 87081; 96365; 96375; 96376; 99285; A9153; G0482; J1644; J1885; J2060; J2270; J3411; J3475; J3490; Q9967

== ENCOUNTER 2023-01-04 09:33 | Inpatient (IN) | payer MEDICAID ==
--- NOTE | 2020-01-04 17:02 | NUR ---
01/04/2023 17:00 RECEIVED REPORT FROM SILVIANO IN ER. PT RESTING IN BED C/O STOMACH PAIN 03/27. NO SOB, NO GUARDING OR GRIMACING . NO ACUTE DISTRESS NOTED AT THIS TIME. [id number].
[~2023-01-04] VITALS: Ht 172.7 cm; Wt 94.8 kg
[~2023-01-04 09:33] MED LIST changes: -ATI.5 PO; +LIB25 PO; +MESA400C PO; +SERT-515 PO; -[UNRECOGNIZED DRUG - CODE] PO
[2023-01-04 09:44] VITALS: BP 107/71
--- NOTE | 2023-01-04 09:52 | NUR ---
bibs for chrons flare up. c/o abd pain,n,v,d. no blood. greenish stools. no active vomit. abd soft, nontender, nondistended. bowel sounds present. aao x4. resp even and nonlabored. denies chest pain,fever, chills, sob.
[2023-01-04] MEDS ORDERED: ONDANSETRON 4 MG/2 ML VIAL IVP ONE (11:20)
[2023-01-04] MEDS ORDERED: NACL 0.9% 2,000 ML IV ONE (11:20)
[2023-01-04] MEDS ORDERED: HYDROCORTISONE NA SUCC 100 MG/2 ML VIAL IV ONE (11:20)
[2023-01-04] MEDS ORDERED: MORPHINE SULFATE 4 MG/ML SYR IVP ONE (11:20)
--- NOTE | 2023-01-04 11:49 | NUR ---
labs drawn. medicated per md order
[2023-01-04 12:06] LABS: LYMPHOCYTES # (AUTO) 0.4 K/uL (2.0-11.5); MEAN CORPUSCULAR VOLUME 84.4 fL (80-94); MONOCYTES # (AUTO) 0.6 K/uL (0.8-1.0)
[2023-01-04 12:27] LABS: ALBUMIN 5.1 g/dL (3.4-5.0); CARBON DIOXIDE 19.7 mmol/L (21-32); CREATININE 1.2 mg/dL (0.6-1.3); POTASSIUM 3.7 mmol/L (3.5-5.1); TOTAL BILIRUBIN 0.4 mg/dL (0.0-1.0)
[2023-01-04 12:31] LABS: BASOPHILS % (AUTO) 0.2 % (0.0-2.0); EOSINOPHILS % (AUTO) 0.5 % (0.0-4.0); HEMATOCRIT 56.6 % (36-52); HEMOGLOBIN 19.2 g/dL (12.0-18.0); LYMPHOCYTES % (AUTO) 6.3 % (20.5-51.1); MEAN CORPUSCULAR HEMOGLOBIN 29 pg (27-31); MEAN CORPUSCULAR HGB CONC 34 g/dL (33-37); MONOCYTES % (AUTO) 11.2 % (1.7-9.3); NEUTROPHILS # (AUTO) 4.7 K/uL (1.8-7.7); NEUTROPHILS % (AUTO) 81.8 % (42.2-75.2); PLATELET COUNT (AUTO) 275 K/uL (140-450); RED CELL DISTRIBUTION WIDTH 13.7 % (11.6-13.7); WHITE BLOOD COUNT (AUTO) 5.8 K/uL (4.8-10.8)
[2023-01-04] MEDS ORDERED: OMEP-303 PO (13:15)
--- NOTE | 2023-01-04 13:15 | NUR ---
covid swab sent to lab
[2023-01-04] MEDS ORDERED: ACETAMINOPHEN 325 MG TAB PO PRN (13:45)
[2023-01-04] MEDS ORDERED: MAG SULF 2000 MG/WATER PREMIX 50 ML IV PRN (13:45)
[2023-01-04] MEDS ORDERED: POTASSIUM CHLORIDE 10 MEQ TABER PO PRN (13:45)
[2023-01-04] MEDS ORDERED: ONDANSETRON 4 MG/2 ML VIAL IVP PRN (13:45)
[2023-01-04] MEDS ORDERED: HYDROcodone/APAP 7.5/325 MG 1 TAB PO PRN (13:45)
[2023-01-04] MEDS: NACL 0.9% 1,000 ML IV SCH ×2 (14:15→23:42)
[2023-01-04 14:49] LABS: AMYLASE 30 U/L (25-115); CHOL/HDL RATIO 3.2 (1-4.5); FREE T4 (FREE THYROXINE) 1.29 ng/dL (0.76-1.46); HDL CHOLESTEROL 64 mg/dL (40-60); LDL (CALC) 134 mg/dL (60-100); LIPASE 85 U/L (73-393); MAGNESIUM 2.1 mg/dL (1.8-2.4); THYROID STIMULATING HORMONE 0.57 uIU/mL (0.34-3.74); TRIGLYCERIDES 45 mg/dL (30-150)
[2023-01-04] MEDS ORDERED: cefTRIAXone 1,000 MG VIAL ONE (15:50)
--- NOTE | 2023-01-04 16:05 | NUR ---
PATIENT HAS BEEN SCREENED AND CATEGORIZED MODERATE NUTRITION RISK. PATIENT WILL BE SEEN WITHIN 3-5 DAYS OF ADMISSION. REVIEWED BY TIFFANI MCMAHAN RD
--- NOTE | 2023-01-04 16:39 | NUR ---
Patient will be admitted to care of . Admited to TELE. Will go to room 107b. Belongings list completed. Report to jake gonzales .
[2023-01-04] MEDS: MESALAMINE 400 MG CAPSULE.DR PO SCH (17:00)
[2023-01-04] MEDS ORDERED: MESALAMINE 800 MG PO SCH (17:00)
[2023-01-04 17:14] LABS: CREATININE 1.1 mg/dL (0.6-1.3); POTASSIUM 3.7 mmol/L (3.5-5.1)
[2023-01-04 17:22] LABS: CARBON DIOXIDE 17.7 mmol/L (21-32)
--- NOTE | 2023-01-04 19:30 | NUR ---
RECEIVED PT FROM AM NURSE FOR CONTINUITY OF CARE.PT IS STABLE
[2023-01-04 20:00] VITALS: BP 132/92
[2023-01-04] MEDS: MORPHINE SULFATE 4 MG/ML SYR IVP PRN (20:44)
[2023-01-04] MEDS: PANTOPRAZOLE 40 MG INJ VIAL IVP SCH (20:49)
[2023-01-04] MEDS: methylPREDNISolone SS 40 MG/ML VIAL IVP SCH (20:49)
[2023-01-04] MEDS: DOCUSATE SODIUM 100 MG GELCAP PO SCH (20:53)
[2023-01-04] MEDS: metroNIDAZOLE 500 MG/NS PREMIX 100 ML IV SCH (20:57)
--- NOTE | 2023-01-04 21:00 | NUR ---
SUPREP BOWEL GIVEN. SCHEDULED FOR COLONOSCOPY IN AM
--- NOTE | 2023-01-04 21:23 | NUR ---
01/04/2023 0725: REPORTED OFF TO GIANNI ACEVEDO [id number].
[2023-01-04] MEDS: SUPREP BOWEL PREP KIT 354 ML SOLN.RECON PO SCH (21:52)
[2023-01-04 23:46] LABS: APPEARANCE,URINE CLOUDY (CLEAR); BILIRUBIN,URINE NEGATIVE (NEGATIVE); BLOOD, URINE NEGATIVE (NEGATIVE); COLOR,URINE YELLOW (YELLOW); LEUKOCYTE ESTERASE ,URINE NEGATIVE (NEGATIVE); NITRITE, URINE NEGATIVE (NEGATIVE); UGLUCOSE NEGATIVE (NEGATIVE)
[2023-01-05] VITALS: BP 129/86
[2023-01-05 00:27] LABS: BARBITURATE, URINE NEGATIVE ng/ml (NEG <=200); BENZODIAZEPINE, URINE NEGATIVE ng/mL (NEG <=200); CANNABINOID, URINE NEGATIVE ng/mL (NEG <=50); COCAINE, URINE NEGATIVE ng/mL (NEG <=300); OPIATE, URINE POSITIVE ng/mL (NEG <=2000); PHENCYCLIDINE SCREEN,URINE NEGATIVE ng/mL (NEG <=25)
[2023-01-05 00:29] LABS: RBC,URINE 0-5 /HPF (0-5); WBC,URINE 0-5 /HPF (0-5)
[2023-01-05 00:30] LABS: URINE AMORPHOUS URATE 1+ /HPF (None Seen)
[2023-01-05] MEDS: NACL 0.9% 1,000 ML IV SCH (01:15)
[2023-01-05 04:00] VITALS: BP 134/89
[2023-01-05] MEDS: metroNIDAZOLE 500 MG/NS PREMIX 100 ML IV SCH ×3 (04:43→20:45)
[2023-01-05 05:46] LABS: BASOPHILS % (AUTO) 0.1 % (0.0-2.0); HEMATOCRIT 46.1 % (36-52); HEMOGLOBIN 15.6 g/dL (12.0-18.0); LYMPHOCYTES # (AUTO) 0.3 K/uL (2.0-11.5); LYMPHOCYTES % (AUTO) 9.2 % (20.5-51.1); MEAN CORPUSCULAR HEMOGLOBIN 29 pg (27-31); MEAN CORPUSCULAR HGB CONC 34 g/dL (33-37); MEAN CORPUSCULAR VOLUME 84.6 fL (80-94); MONOCYTES # (AUTO) 0.1 K/uL (0.8-1.0); MONOCYTES % (AUTO) 3.2 % (1.7-9.3); NEUTROPHILS # (AUTO) 3.1 K/uL (1.8-7.7); NEUTROPHILS % (AUTO) 87.5 % (42.2-75.2); PLATELET COUNT (AUTO) 255 K/uL (140-450); RED BLOOD CELL COUNT(AUTO) 5.44 MIL/uL (4.20-6.10); RED CELL DISTRIBUTION WIDTH 13.4 % (11.6-13.7); WHITE BLOOD COUNT (AUTO) 3.5 K/uL (4.8-10.8)
[2023-01-05 06:27] LABS: CARBON DIOXIDE 24.9 mmol/L (21-32); POTASSIUM 3.9 mmol/L (3.5-5.1)
[2023-01-05 06:38] LABS: MAGNESIUM 2.1 mg/dL (1.8-2.4); PHOSPHORUS 3.3 mg/dL (2.5-4.9)
[2023-01-05] MEDS ORDERED: fentaNYL citrate 0.05 MG/ML VIAL ONE ×2 (07:46→08:19)
[2023-01-05] MEDS ORDERED: LIDOCAINE 2% 100 MG/5 ML UJET TP ONE (07:47)
[2023-01-05] MEDS ORDERED: MIDAZOLAM 5 MG/5 ML VIAL ONE (07:47)
[2023-01-05 08:00] VITALS: BP 122/82
[2023-01-05] MEDS ORDERED: MEPERIDINE 25 MG/ML SYR ONE (08:18)
[2023-01-05] MEDS ORDERED: PANTOPRAZOLE 40 MG INJ VIAL IVP SCH (09:00)
[2023-01-05] MEDS: SUPREP BOWEL PREP KIT 354 ML SOLN.RECON PO SCH (09:00)
[2023-01-05] MEDS: PANTOPRAZOLE 40 MG INJ VIAL IVP SCH ×2 (09:29→20:46)
[2023-01-05] MEDS: methylPREDNISolone SS 40 MG/ML VIAL IVP SCH ×2 (09:31→20:46)
[2023-01-05] MEDS: DOCUSATE SODIUM 100 MG GELCAP PO SCH ×2 (09:32→20:47)
[2023-01-05] MEDS: MESALAMINE 400 MG CAPSULE.DR PO SCH ×3 (09:33→17:44)
[2023-01-05] MEDS: SERTRALINE 50 MG TAB PO SCH (09:35)
--- NOTE | 2023-01-05 10:36 | NUR ---
01/05/2023 0800:RECEIVED PT FROM GIANNI ACEVEDO. PT RESTING IN BED. NO SOB, GUARDING OR GRIMACING. NO ACUTE DISTRESS NOTED AT THIS TIME. [id number].
[2023-01-05] MEDS ORDERED: MEPERIDINE 25 MG/ML SYR IVP PRN (11:55)
[2023-01-05] MEDS ORDERED: fentaNYL citrate 0.05 MG/ML VIAL IVP ONE (11:55)
[2023-01-05] MEDS ORDERED: MIDAZOLAM 2 MG/2 ML VIAL IVP ONE (11:55)
[2023-01-05 12:00] VITALS: BP 137/87
[2023-01-05 16:00] VITALS: BP 134/87
[2023-01-05 20:00] VITALS: BP 132/80
--- NOTE | 2023-01-05 20:00 | NUR ---
RECEIVED PT FROM JANE ACEVEDO. ON BED, AWAKE, ALERT AND VERBALLY RESPONSIVE. PT IS A FULL CODE AND ORIENTED X 4. HE IS ON REGULAR DIET. IV SITE ON RIGHT WRIST, INTACT AND PATENT, INFUSING NORMAL SALINE AT 100ML/HR, WELL TOLERATED. PT VERBALIZED OF MILD AND BEARABLE PAIN ON ABDOMINAL AREA. SKIN IS INTACT.
--- NOTE | 2023-01-05 20:01 | NUR ---
01/05/2023 0750: REPORT OFF TO RENATA ACEVEDO. PT RESTING IN BED EYES CLOSED. NO SOB, SUARDING OR GRIMACING. NO ACUTE DISTRESS NOTED AT THIS TIME. [id number].
[2023-01-05] MEDS: MORPHINE SULFATE 4 MG/ML SYR IVP PRN (21:11)
--- NOTE | 2023-01-05 21:11 | NUR ---
PT COMPLAINTS OF SEVERE ABDOMINAL PAIN 06/27, PAIN MEDICATION MORPHINE ADMINISTERED ORDER.
--- NOTE | 2023-01-05 22:11 | NUR ---
PT ASLEEP, NO FACIAL GRIMACING.
[2023-01-06] VITALS: BP 132/82
[2023-01-06] MEDS: MORPHINE SULFATE 4 MG/ML SYR IVP PRN ×2 (01:43→10:52)
--- NOTE | 2023-01-06 01:43 | NUR ---
PT COMPLAINTS OF SEVERE ABDOMINAL PAIN 06/27, PAIN MEDICATION MORPHINE ADMINISTERED ORDER.
[2023-01-06] MEDS ORDERED: ZOLPIDEM 5 MG TAB PO PRN (02:30)
--- NOTE | 2023-01-06 02:43 | NUR ---
PT ASLEEP WELL. NO FACIAL GRIMACING.
[2023-01-06 04:00] VITALS: BP 120/67
[2023-01-06] MEDS: metroNIDAZOLE 500 MG/NS PREMIX 100 ML IV SCH ×2 (05:01→13:00)
--- NOTE | 2023-01-06 05:30 | NUR ---
PT STATED THE PAIN MEDICATION IS EFFECTIVE AND PAIN IS DECREASE A LOT.
[2023-01-06 07:18] LABS: HEMATOCRIT 40.9 % (36-52); HEMOGLOBIN 13.6 g/dL (12.0-18.0); LYMPHOCYTES # (AUTO) 0.6 K/uL (2.0-11.5); LYMPHOCYTES % (AUTO) 10.2 % (20.5-51.1); MEAN CORPUSCULAR HEMOGLOBIN 28 pg (27-31); MEAN CORPUSCULAR HGB CONC 33 g/dL (33-37); MEAN CORPUSCULAR VOLUME 84.5 fL (80-94); MONOCYTES # (AUTO) 0.8 K/uL (0.8-1.0); MONOCYTES % (AUTO) 13.8 % (1.7-9.3); NEUTROPHILS # (AUTO) 4.2 K/uL (1.8-7.7); PLATELET COUNT (AUTO) 251 K/uL (140-450); RED BLOOD CELL COUNT(AUTO) 4.84 MIL/uL (4.20-6.10); RED CELL DISTRIBUTION WIDTH 13.6 % (11.6-13.7); WHITE BLOOD COUNT (AUTO) 5.5 K/uL (4.8-10.8)
[2023-01-06 07:26] LABS: ANION GAP 11.5 (8-16); CREATININE 0.8 mg/dL (0.6-1.3); POTASSIUM 3.5 mmol/L (3.5-5.1)
[2023-01-06 07:41] LABS: MAGNESIUM 2.1 mg/dL (1.8-2.4); PHOSPHORUS 3.1 mg/dL (2.5-4.9)
[2023-01-06 08:00] VITALS: BP 134/87
--- NOTE | 2023-01-06 08:06 | NUR ---
GOT REPORT FROM THE NIGHT NURSE, PT SLEEPING NO SOB.[id number]
[2023-01-06] MEDS: methylPREDNISolone SS 40 MG/ML VIAL IVP SCH (09:20)
[2023-01-06] MEDS: DOCUSATE SODIUM 100 MG GELCAP PO SCH (09:21)
[2023-01-06] MEDS: PANTOPRAZOLE 40 MG INJ VIAL IVP SCH (09:21)
[2023-01-06] MEDS: SERTRALINE 50 MG TAB PO SCH (09:21)
[2023-01-06] MEDS: MESALAMINE 400 MG CAPSULE.DR PO SCH ×3 (09:23→17:00)
[2023-01-06 12:00] VITALS: BP 138/82
[2023-01-06] MEDS ORDERED: CIPR500T4 PO (12:27)
[2023-01-06] MEDS ORDERED: MESA400C PO (12:27)
[2023-01-06] MEDS ORDERED: METR-520 PO (12:27)
[2023-01-06] MEDS ORDERED: PRED20TA5 PO (12:27)
[2023-01-06 13:11] VITALS: BP 128/72
[2023-01-06 16:00] VITALS: BP 124/71
--- NOTE | 2023-01-06 17:29 | NUR ---
Pt. DC home in stable condition. VS WNL. No c/o pain and acute distress noted. at the bedside, educated to make a f/u appointment in a week with PMD.
== END 2023-01-06 18:17 | disposition home or self-care (01) | DRG 720 ==
LOC: MED 09:33 → MTU 13:48
PROC: 0DBE8ZX Excision of Large Intestine, Via Natural or Artificial Opening Endoscopic, Diagnostic (ICD-10-PCS; 2023-01-05)
PROC: 0DBP8ZX Excision of Rectum, Via Natural or Artificial Opening Endoscopic, Diagnostic (ICD-10-PCS; 2023-01-05)
PROC: 0DBB8ZX Excision of Ileum, Via Natural or Artificial Opening Endoscopic, Diagnostic (ICD-10-PCS; principal; 2023-01-05 08:00)
DX: A41.9 Sepsis, unspecified organism (principal); N17.9 Acute kidney failure, unspecified; K50.00 Crohn's disease of small intestine without complications; K60.3 Anal fistula; K52.9 Noninfective gastroenteritis and colitis, unspecified; K60.2 Anal fissure, unspecified; I25.10 Atherosclerotic heart disease of native coronary artery without angina pectoris; E86.0 Dehydration; K21.9 Gastro-esophageal reflux disease without esophagitis; F32.A Depression, unspecified; E66.9 Obesity, unspecified; Z20.822 Contact with and (suspected) exposure to COVID-19; Z88.1 Allergy status to other antibiotic agents; Z79.899 Other long term (current) drug therapy; Z87.11 Personal history of peptic ulcer disease; Z68.31 Body mass index [BMI] 31.0-31.9, adult
CPT/HCPCS: 36415; 71045; 80048; 80053; 80305; 81001; 82140; 82150; 83036; 83605; 83690; 83735; 83880; 84100; 84439; 84443; 84484; 85025; 85610; 85730; 86886; 86900; 86901; 87040; 87081; 87086; 88305; 93005; 96361; 96374; 96375; 99285; C9113; J0696; J1720; J2175; J2250; J2270; J2405; J2920; J3010; J3490; J7060

== ENCOUNTER 2024-06-04 16:56 | Emergency (ER) | payer MEDICAID ==
[~2024-06-04] VITALS: Ht 170.2 cm; Wt 97.5 kg
[~2024-06-04 16:56] MED LIST changes: +CIPR500T4 PO; -LIB25 PO; +METR-520 PO; +OMEP-303 PO; +PRED20TA5 PO
[2024-06-04 17:13] VITALS: BP 125/86; PULSE 74; RESP 18; TEMP 98; O2SAT 98
[2024-06-04 17:33] LABS: BASOPHILS % (AUTO) 0.6 % (0.0-2.0); EOSINOPHILS # (AUTO) 0.2 K/uL (0-0.4); HEMATOCRIT 45.1 % (36-52); HEMOGLOBIN 15.3 g/dL (12.0-18.0); LYMPHOCYTES # (AUTO) 1.4 K/uL (2.0-11.5); LYMPHOCYTES % (AUTO) 24.1 % (20.5-51.1); MEAN CORPUSCULAR HEMOGLOBIN 29 pg (27-31); MEAN CORPUSCULAR HGB CONC 34 g/dL (33-37); MEAN CORPUSCULAR VOLUME 86.5 fL (80-94); MONOCYTES # (AUTO) 0.6 K/uL (0.8-1.0); NEUTROPHILS # (AUTO) 3.5 K/uL (1.8-7.7); NEUTROPHILS % (AUTO) 61.3 % (42.2-75.2); PLATELET COUNT (AUTO) 248 K/uL (140-450); RED BLOOD CELL COUNT(AUTO) 5.21 MIL/uL (4.20-6.10); RED CELL DISTRIBUTION WIDTH 13.4 % (11.6-13.7); WHITE BLOOD COUNT (AUTO) 5.8 K/uL (4.8-10.8)
[2024-06-04 17:49] LABS: ANION GAP 11.4 (8-16); CALCIUM 8.8 mg/dL (8.5-10.1); CARBON DIOXIDE 27.6 mmol/L (21-32); CREATININE 0.9 mg/dL (0.6-1.3)
[2024-06-04 17:52] LABS: ALBUMIN 3.9 g/dL (3.4-5.0); BILIRUBIN,DIRECT 0.1 mg/dL (0.0-0.3); TOTAL BILIRUBIN 0.5 mg/dL (0.0-1.0); TOTAL PROTEIN, SERUM 7.8 g/dL (6.4-8.2)
[2024-06-04] MEDS: FAMOTIDINE 20 MG TAB PO ONE (20:24)
[2024-06-04] MEDS: ALUMINUM HYD/MAG/SIMETHICONE 30 ML UDC PO ONE (20:24)
[2024-06-04 20:25] VITALS: O2SAT 98
[2024-06-04] MEDS: KETOROLAC 30 MG/ML VIAL IM ONE (20:25)
[2024-06-04] MEDS ORDERED: OMEP20EC11 PO (21:18)
[2024-06-04] MEDS ORDERED: DICY20TA2 PO (21:18)
== END 2024-06-04 21:42 | disposition home or self-care (01) ==
LOC: MED 16:56
DX: G89.29 Other chronic pain (principal); R10.9 Unspecified abdominal pain; Z86.69 Personal history of other diseases of the nervous system and sense organs; Z79.899 Other long term (current) drug therapy; Z88.1 Allergy status to other antibiotic agents
CPT/HCPCS: 36415; 71045; 74176; 80048; 80076; 83690; 84484; 85025; 93005; 96372; 99285; J1885

== ENCOUNTER 2024-07-04 06:41 | Emergency (ER) | payer MEDICAID ==
[~2024-07-04] VITALS: Ht 170.2 cm; Wt 100.3 kg
[~2024-07-04 06:41] MED LIST changes: +DICY20TA2 PO; +OMEP20EC11 PO
[2024-07-04 06:47] VITALS: BP 123/85; PULSE 100; RESP 20; TEMP 98; O2SAT 98
[2024-07-04] MEDS: ONDANSETRON 4 MG/2 ML VIAL IVP ONE (07:34)
[2024-07-04 07:39] LABS: BASOPHILS % (AUTO) 0.3 % (0.0-2.0); EOSINOPHILS # (AUTO) 0.1 K/uL (0-0.4); EOSINOPHILS % (AUTO) 0.9 % (0.0-4.0); HEMOGLOBIN 15.1 g/dL (12.0-18.0); LYMPHOCYTES % (AUTO) 9.6 % (20.5-51.1); MEAN CORPUSCULAR HEMOGLOBIN 29 pg (27-31); MEAN CORPUSCULAR HGB CONC 34 g/dL (33-37); MEAN CORPUSCULAR VOLUME 85.6 fL (80-94); MONOCYTES # (AUTO) 0.8 K/uL (0.8-1.0); MONOCYTES % (AUTO) 7.6 % (1.7-9.3); NEUTROPHILS # (AUTO) 8.3 K/uL (1.8-7.7); NEUTROPHILS % (AUTO) 81.6 % (42.2-75.2); PLATELET COUNT (AUTO) 228 K/uL (140-450); RED BLOOD CELL COUNT(AUTO) 5.25 MIL/uL (4.20-6.10); RED CELL DISTRIBUTION WIDTH 13.3 % (11.6-13.7); WHITE BLOOD COUNT (AUTO) 10.2 K/uL (4.8-10.8)
[2024-07-04] MEDS: MORPHINE SULFATE 4 MG/ML SYR IVP ONE ×2 (07:40→08:44)
[2024-07-04] MEDS: NACL 0.9% 1,000 ML IV SCH (07:41)
[2024-07-04] MEDS ORDERED: MORPHINE SULFATE 4 MG/ML SYR ONE (08:39)
[2024-07-04 08:43] LABS: ANION GAP 13.1 (8-16); CALCIUM 8.4 mg/dL (8.5-10.1); CARBON DIOXIDE 26.7 mmol/L (21-32); CREATININE 0.9 mg/dL (0.6-1.3); POTASSIUM 3.8 mmol/L (3.5-5.1)
[2024-07-04 09:41] LABS: ALBUMIN 3.7 g/dL (3.4-5.0); BILIRUBIN,DIRECT 0.1 mg/dL (0.0-0.3); TOTAL BILIRUBIN 0.6 mg/dL (0.0-1.0); TOTAL PROTEIN, SERUM 7.5 g/dL (6.4-8.2)
[2024-07-04] MEDS ORDERED: ONDA8TAB87 PO (09:52)
[2024-07-04] MEDS ORDERED: IBUP-2213 PO (09:52)
[2024-07-04] MEDS ORDERED: ACET-8905 PO (09:52)
[2024-07-04 10:00] VITALS: BP 122/69; PULSE 86; RESP 21; TEMP 97.5; O2SAT 96
[2024-07-06] MEDS ORDERED: CIPR500T4 PO (15:10)
[2024-07-06] MEDS ORDERED: OMEP-303 PO (15:16)
== END 2024-07-04 10:00 | disposition home or self-care (01) ==
LOC: MED 06:41
DX: R10.13 Epigastric pain (principal); R11.0 Nausea; R03.0 Elevated blood-pressure reading, without diagnosis of hypertension; Z86.69 Personal history of other diseases of the nervous system and sense organs; Z86.79 Personal history of other diseases of the circulatory system; Z79.899 Other long term (current) drug therapy; Z88.8 Allergy status to other drugs, medicaments and biological substances
CPT/HCPCS: 36415; 74176; 80048; 80076; 83690; 85025; 96361; 96374; 96375; 96376; 99285; J2270; J2405; J7030